=== PATIENT | female | born 1955 | race Caucasian/White ===

== ENCOUNTER → 2018-07-20 | Outpatient (CLI) | payer OTHER ==
--- NOTE | 2018-07-20 16:38 | KCIC ---
Bilateral digital screening mammograms: Reason for examination: Routine screening. Comparison is made to previous studies dated back to 07/13/2013. Interpretation is made with the benefit of CAD. The skin and nipples show no abnormalities. No abnormal lymph nodes are seen. The breast parenchyma is predominantly fatty. (Breast density: Category A.) There continues to be some focal asymmetric parenchyma at the 6:00 B position of the right breast which is unchanged. There are no new dominant masses, suspicious calcifications or architectural distortions. Impression: No evidence of malignancy. Recommend routine screening. BI-RADS Category 2: Benign. "Our facility is accredited by the [employer] Mammography [employer]." This patient's information has been entered into a reminder system for the patient to be notified with the results of her examination and a target date for the next mammogram. Electronically signed by: Juanita Cardoza MD (07/20/2018 4:34 PM) [id number]
== END | disposition home or self-care (01) ==
LOC: KCIC MAMMO 15:31
PROVIDERS: ATTEND Family Medicine
DX: Z12.31 Encounter for screening mammogram for malignant neoplasm of breast (principal)
CPT/HCPCS: 77067

== ENCOUNTER → 2019-04-15 | Outpatient (CLI) | payer OTHER ==
--- NOTE | 2019-04-15 16:38 | KCIC ---
EXAM: Pelvic sonogram. HISTORY: Enlarged uterus. TECHNIQUE: Transabdominal and transvaginal sonographic imaging of the pelvis was performed. COMPARISON: None. FINDINGS: The uterus measures 5.5 x 2.5 x 4.2 cm. The endometrial stripe measures 2.3 mm thickness. The ovaries are not seen. There is a cystic structure within the right adnexa containing echogenic material, measuring 7.3 x 6.3 x 6.3 cm. There may be adjacent hydrosalpinx or loculated fluid. There are several calcifications within the cervix. There is a small cervical nabothian cyst. IMPRESSION: 1. Large suspected complex cystic lesion within the right adnexa measuring 7.3 cm. This may be ovarian or paraovarian in etiology. There is suggestion of adjacent hydrosalpinx or loculated fluid. Given the postmenopausal status the patient, correlation with a CA-125 serum tumor marker level and surgical consultation is recommended. The the ovaries are not seen. 2. Normal-sized uterus and thin endometrial stripe, appropriate for the postmenopausal status of the patient. Electronically signed by: Magdalena Thompson MD (04/15/2019 4:35 PM) [place] [id number]
== END | disposition home or self-care (01) ==
LOC: KCIC US 15:02
PROVIDERS: ATTEND Family Medicine
DX: N88.8 Other specified noninflammatory disorders of cervix uteri (principal)
CPT/HCPCS: 76830; 76856

== ENCOUNTER → 2019-08-12 | Outpatient (CLI) | payer OTHER ==
--- NOTE | 2019-08-12 18:33 | KCIC ---
Bilateral digital screening mammograms: Reason for examination: Routine screening. Comparison is made to previous studies dated 07/20/2018 and 09/03/2016. Interpretation is made with the benefit of CAD. The skin and nipples show no abnormalities. No abnormal lymph nodes are seen. The breast parenchyma is predominantly fatty. (Breast density: Category A.) There continues to be some focal asymmetric parenchyma at the 6:00 B position of the right breast which is stable. There are no new dominant masses, suspicious calcifications or architectural distortions. Impression: No evidence of malignancy. Recommend routine screening. BI-RADS Category 2: Benign. "Our facility is accredited by the [employer] Mammography [employer]." This patient's information has been entered into a reminder system for the patient to be notified with the results of her examination and a target date for the next mammogram. Electronically signed by: Juanita Cardoza MD (08/12/2019 6:30 PM) [id number]
== END | disposition home or self-care (01) ==
LOC: KCIC MAMMO 14:59
PROVIDERS: ATTEND Family Medicine
DX: Z12.31 Encounter for screening mammogram for malignant neoplasm of breast (principal)
CPT/HCPCS: 77067

== ENCOUNTER → 2020-12-12 | Outpatient (CLI) | payer OTHER ==
--- NOTE | 2020-12-12 16:30 | KCIC ---
Bilateral digital screening mammograms: Reason for examination: Routine screening. Comparison is made to previous studies dated back to 09/03/2016. Interpretation is made with the benefit of CAD. The skin and nipples show no abnormalities. No abnormal lymph nodes are seen. The breast parenchyma i s predominantly fatty. (Breast density: Category A.) There continues to be some nodular asymmetry at the 6:00 B position of the right breast which is stable. There are no new dominant masses, suspicious calcifications or architectural distortions. Impression: No evidence of malignancy. Recommend routine screening. BI-RADS Category 2: Benign. "Our facility is accredited by the [employer]amm[employer]." This patient's information has been entered into a reminder system for the patient to be notified wit h the results of her examination and a target date for the next mammogram. Electronically signed by: Juanita Cardoza MD (12/12/2020 4:28 PM) [id number]
== END ==
LOC: KCIC MAMMO 14:01
PROVIDERS: ATTEND Family Medicine
DX: Z12.31 Encounter for screening mammogram for malignant neoplasm of breast (principal); N64.89 Other specified disorders of breast
CPT/HCPCS: 77067

== ENCOUNTER → 2021-08-22 | Outpatient (CLI) | payer OTHER ==
--- NOTE | 2021-08-22 12:52 | KCIC ---
EXAMINATION: MRI LEFT LOWER EXTREMITY JOINT WITHOUT INDICATIONS: Medial left knee pain, fell on stairs over 2 weeks ago. Evaluate for meniscal tear.. TECHNIQUE: Multiplanar multisequence MRI of the left knee was obtained without contrast. COMPARISON: None FINDINGS: MENISCI: Mild intrasubstance signal in the posterior horn medial meniscus without definite extension to the surface is likely due to mucoid degeneration. There is no medial or lateral meniscal tear vis ualized. LIGAMENTS: The ACL and PCL are intact. Mild irregularity of the superficial MCL with fluid extending along the ligament suspicious for sprain/low-grade partial tear, greatest proximally. The medial meni scofemoral ligament is not well visualized. Minimal increased signal in the distal biceps femoris and conjoined tendons may be minimal sprain. Popliteus tendon and iliotibial band are intact. EXTENSOR MECHANISM: The quadriceps and patellar tendons are intact. Fat pads are normal. Retinacula are intact. BONES AND CARTILAGE: Tiny impaction fracture with associated marrow edema in the posterior nonweight bearing lateral femoral condyle. Marrow edema in the posterior lateral tibial plateau. There is scatt ered superficial partial-thickness cartilage loss along the patella with a few deep fissures. Focal n ear full-thickness cartilage defect in the inferior trochlear groove measuring 6 mm with subchondral marrow edema. Mild superficial partial-thickness cartilage loss in the medial compartment. Lateral co mpartment cartilage is intact. OTHER: There is a small joint effusion with synovitis. No bursitis. Muscles are normal. Mild subcuta neous edema, greatest medially. IMPRESSION: 1. No meniscal tear. 2. Sprain of the MCL and minimal sprain of the LCL complex. 3. Tiny impaction fracture of the posterior nonweightbearing lateral femoral condyle and contusion of the posterior lateral tibial plateau.. 4. Medial and patellofemoral compartment cartilage loss. Electronically signed by: Antoinette Posadas MD (08/22/2021 12:49 PM) [id number]
== END ==
LOC: KCIC MRI 10:03
PROVIDERS: ATTEND Orthopaedic Surgery
DX: S83.412A Sprain of medial collateral ligament of left knee, initial encounter (principal); S80.02XA Contusion of left knee, initial encounter; R60.0 Localized edema; M25.462 Effusion, left knee; X58.XXXA Exposure to other specified factors, initial encounter; Y93.89 Activity, other specified; Y92.89 Other specified places as the place of occurrence of the external cause; Y99.8 Other external cause status; M25.862 Other specified joint disorders, left knee
CPT/HCPCS: 73721